=== PATIENT | female | born 1975 | race Caucasian/White ===

== ENCOUNTER 2016-09-26 08:09 | Inpatient (IN) ==
--- NOTE | 2016-09-26 08:26 | Emergency Department Note ---
Disposition Clinical Impression: COPD with acute exacerbation Pneumonia Qualifiers: Pneumonia type: due to unspecified organism Laterality: left Lung location: lower lobe of lung Qualified Code(s): J18.1 - Lobar pneumonia, unspecified organism Disposition: Admitted As Inpatient Condition: Fair Time of Disposition: 10:25 General Adult HPI - General Chief complaint: ED Chest Pain Stated complaint: chest pain Time Seen by Provider: 09/26/16 08:10 Source: patient Mode of arrival: EMS Limitations: no limitations Nursing Notes Reviewed: Yes Vital Signs Reviewed: Yes - History of Present Illness HPI Narrative: Patient is a 40-year-old female arriving by [facility] with past medical history of COPD presenting with complaint of chest pain shortness of breath this started suddenly when she woke up this morning. She describes the chest pain is stabbing like chest pain in the left chest and radiates into her arm into the left side of her back and worsens with deep breath, nothing makes it better. She denies any fevers, chills, nausea, vomiting, diaphoresis, abdominal pain, lower extremity swelling or calf pain. She has no history of CAD, blood clots, recent trauma or surgeries and is on no controls. Patient received a DuoNeb treatment by [facility] states she feels this improved her symptoms. The patient was also seen in the emergency department one week ago and treated for upper respiratory infection she does not recall the antibiotic, however did not make her better. - Related Data Home Medications Medication Instructions Recorded Confirmed Albuterol Sulfate [Albuterol 2 puff IH Q4-6H PRN 09/26/16 09/26/16 Inhaler] Tiotropium [Spiriva] 18 mcg PO DAILY 09/26/16 09/26/16 Allergies Allergy/AdvReac Type Severity Reaction Status Date / Time No Known Allergies Allergy Verified 09/26/16 10:34 All systems ED: reviewed and negative except as stated. Constitutional: Denies: fever, chills Cardiovascular: Reports: chest pain. Denies: palpitations, dyspnea on exertion Respiratory: Reports: cough, dyspnea, wheezes, sputum production. Denies: hemoptysis, stridor Gastrointestinal: Denies: abdominal pain, nausea, vomiting Genitourinary: Denies: urgency, dysuria Musculoskeletal: Denies: back pain, neck pain Integumentary: Denies: rash Neurological: Denies: headache, weakness Past Medical History - Past Medical History Medical history: Reports: COPD - Social History Smoking Status: Current every day smoker Smokeless Tobacco Status: No Alcohol use: Reports: none Drug use: Reports: none Physical Exam Patient does appear to be in mild discomfort she is to Her vital signs are otherwise normal. The patient is able to speak in full sentences. She is satting at 97% on room air. - General Limitations: no limitations General appearance: alert, in no apparent distress - Head Head exam: atraumatic, normocephalic, normal inspection - Eye Eye exam: Present: normal appearance, PERRL, EOMI - ENT ENT exam: normal exam, normal oropharynx, mucous membranes moist - Neck Neck exam: Present: normal inspection, full ROM, trachea midline - Chest Chest inspection: Present: normal inspection, symmetric chest wall rise - Expanded Respiratory Exam Location: wheezes: Left, Right, Upper, Lower, rales: Left, Upper, Lower, Right, rhonchi: Left, Upper, Lower - Cardiovascular Cardiovascular exam: Present: regular rate, normal rhythm, normal heart sounds - Abdominal Exam Abdominal exam: Present: soft, Non-Tender, normal bowel sounds - Extremities Exam Extremities exam: Present: normal inspection, full ROM, normal capillary refill. Absent: tenderness, pedal edema, calf tenderness - Expanded Lower Extremity Exam Neurovascular/Tendon exam: Present: normal capillary refill. Absent: pulse deficit - Back Exam Back exam: Present: normal inspection, full ROM. Absent: CVA tenderness (R), CVA tenderness (L) - Neurological Exam Neurological exam: Present: alert, oriented X3 - Psychiatric Psychiatric exam: Present: normal affect, anxious - Skin Skin exam: Present: warm, dry, intact, normal color Course Course Narrative: Patient is a 4-year-old female with history of COPD presenting with left-sided chest pain and shortness of breath upon awakening this morning. She seen here one week ago and treated for URI infection she states she received an antibiotic however when I review her past medical records she received steroids and expectorants. Order chest x-ray and labs also check some cardiac labs on her as well. - Reevaluation(s) Reevaluation #1: Patient states she is not feeling much better after her DuoNeb's. She requested something for her left-sided chest pain. Discussed with the patient I will treat her pain also started on an antibiotic. Discussed with her that her chest x-ray showed a possible pneumonia in her left lower lobe. Time: 09:52 Reevaluation #2: On reevaluation the patient and discussion for admission and also the patient has borderline tachycardia and she is satting at 91% on room air so put her on 2 L of oxygen. I also ordered blood cultures and lactic acid prior to antibiotic administration. I ordered her IV levofloxacin. Time: 10:14 Reevaluation #3: I discussed the patient's case with Dr. Prado he agrees to accept the patient. Time: 10:29 Vital Signs Temperature 98.3 F 09/26/16 08:11 Pulse Rate 90 09/26/16 08:11 Respiratory Rate 30 09/26/16 08:11 Blood Pressure 112/76 09/26/16 08:11 O2 Sat by Pulse Oximetry 96 09/26/16 08:11 Temperature 98.0 F 09/26/16 15:10 Pulse Rate 89 09/26/16 15:10 Respiratory Rate 18 09/26/16 15:10 Blood Pressure 107/71 09/26/16 15:10 O2 Sat by Pulse Oximetry 95 09/26/16 15:10 Oxygen Delivery Oxygen Delivery Nasal Cannula Medical Decision Making - Medical Records Medical records reviewed: Yes I reviewed the patient's medical records. - Lab Data Lab results reviewed: Yes I reviewed the patient's lab results. Result diagrams: 09/26/16 08:31 09/26/16 08:31 Lab Results 09/26/16 09/26/16 09/26/16 Range/Units 08:31 08:31 08:31 WBC 12.9 H (4.3-11.1) K/mcL RBC 4.38 (3.82-4.97) M/mcL Hgb 12.7 (11.5-15.4) g/dL Hct 38.4 (35.3-44.9) % MCV 87.7 (83.0-100.0) fL MCH 29.0 (28.0-33.3) pg MCHC 33.1 (31.6-35.5) g/dL RDW 12.7 (11.5-14.5) % Plt Count 172 (140-400) K/mcL MPV 10.2 (9.4-12.4) fL Immature Gran % 0.7 (0-4) % Seg Neutrophils % 78.4 % Lymphocytes % 11.4 % Monocytes % 8.7 % Eosinophils % 0.6 % Basophils % 0.2 % Neutrophils # 10.1 H (1.6-8.9) K/mcL Lymphocytes # 1.5 (0.6-4.6) K/mcL Monocytes # 1.1 (0.0-1.3) K/mcL Eosinophils # 0.1 (0.0-0.6) K/mcL Basophils # 0.0 (0.0-0.2) K/mcL Sodium 139 (136-145) mEq/L Potassium 3.6 (3.5-4.5) mEq/L Chloride 106 (98-109) mEq/L Carbon Dioxide 25 (19-29) mEq/L BUN 6 L (7-20) mg/dL Creatinine 0.80 (0.57-1.11) mg/dL Est GFR ( Amer) > 60 (> 60) Est GFR (Non-Af Amer) > 60 (> 60) BUN/Creatinine Ratio 8 (6-26) Glucose 117 H (70-99) mg/dL Calculated Osmolality 287 (280-300) Lactic Acid (0.5-2.2) mmol/L Calcium 8.9 (8.6-10.8) mg/dL Troponin I (0-0.03) ng/mL B-Natriuretic Peptide 48 (0-100) pg/mL 09/26/16 09/26/16 Range/Units 08:31 10:15 WBC (4.3-11.1) K/mcL RBC (3.82-4.97) M/mcL Hgb (11.5-15.4) g/dL Hct (35.3-44.9) % MCV (83.0-100.0) fL MCH (28.0-33.3) pg MCHC (31.6-35.5) g/dL RDW (11.5-14.5) % Plt Count (140-400) K/mcL MPV (9.4-12.4) fL Immature Gran % (0-4) % Seg Neutrophils % % Lymphocytes % % Monocytes % % Eosinophils % % Basophils % % Neutrophils # (1.6-8.9) K/mcL Lymphocytes # (0.6-4.6) K/mcL Monocytes # (0.0-1.3) K/mcL Eosinophils # (0.0-0.6) K/mcL Basophils # (0.0-0.2) K/mcL Sodium (136-145) mEq/L Potassium (3.5-4.5) mEq/L Chloride (98-109) mEq/L Carbon Dioxide (19-29) mEq/L BUN (7-20) mg/dL Creatinine (0.57-1.11) mg/dL Est GFR ( Amer) (> 60) Est GFR (Non-Af Amer) (> 60) BUN/Creatinine Ratio (6-26) Glucose (70-99) mg/dL Calculated Osmolality (280-300) Lactic Acid 1.0 (0.5-2.2) mmol/L Calcium (8.6-10.8) mg/dL Troponin I 0.01 (0-0.03) ng/mL B-Natriuretic Peptide (0-100) pg/mL - Radiology Data Radiology results reviewed: Yes I reviewed the patient's radiology results. Chest X-Ray 09/26/16 08:16 IMPRESSION: COPD with focal hazy airspace opacity at the left lung base suggestive of pneumonia. Recommend follow-up to resolution. D/ / 09/26/2016 09:01:12 Cem Collazo MD / Maricel Villasenor Interpreting Provider: Cem Collazo MD - EKG Data EKG #1 EKG attestation: Yes I reviewed and interpreted this EKG. EKG results narrative: This EKG was interpreted at 8:10. There is sinus rhythm at a rate of 93. Normal axis. IA is 117, QRS is 85, QT is 321 these are within normal limits. Good R-wave progression. No signs of hypertrophy. No ST elevations or depressions or Q waves. No old EKG for comparison.
[2016-09-26] MEDS ORDERED: Ipratropium/Albuterol Neb 3 ML IH SCH (08:30)
[2016-09-26] MEDS ORDERED: methylPREDNISolone 125 MG/2 ML VIAL IVP ONE (08:35)
[2016-09-26 08:39] LABS: Basophils % 0.2 %; Eosinophils # 0.1 K/mcL (0.0-0.6); Eosinophils % 0.6 %; Hematocrit 38.4 % (35.3-44.9); Hemoglobin 12.7 g/dL (11.5-15.4); Immature Granulocytes % 0.7 % (0-4); Lymphocytes # 1.5 K/mcL (0.6-4.6); Lymphocytes % 11.4 %; Mean Corpuscular HGB Conc 33.1 g/dL (31.6-35.5); Mean Corpuscular Volume 87.7 fL (83.0-100.0); Mean Platelet Volume 10.2 fL (9.4-12.4); Monocytes # 1.1 K/mcL (0.0-1.3); Monocytes % 8.7 %; Neutrophils # 10.1 K/mcL (1.6-8.9); Platelet Count 172 K/mcL (140-400); Red Blood Count 4.38 M/mcL (3.82-4.97); Red Cell Distribution Width 12.7 % (11.5-14.5); Segmented Neutrophils % 78.4 %
[2016-09-26 08:53] LABS: BUN/Creatinine Ratio 8 (6-26); Blood Urea Nitrogen 6 mg/dL (7-20); Calcium 8.9 mg/dL (8.6-10.8); Carbon Dioxide 25 mEq/L (19-29); Chloride 106 mEq/L (98-109); Glucose 117 mg/dL (70-99); Osmolality,Calculated 287 (280-300); Potassium 3.6 mEq/L (3.5-4.5); Sodium 139 mEq/L (136-145); eGFR For African Americans > 60 (> 60); eGFR For Non-African Americans > 60 (> 60)
--- NOTE | 2016-09-26 09:19 | Emergency Department Note ---
START Narrative - START START: I examined this patient and my medical decision-making was reviewed with the Resident Physician. I agree with the documented findings, disposition and treatment plan as described except to the extent set forth below. Patient to ED with left sided chest pain and shortness of breath. Pain woke her up from sleep. Recently seen here and diagnosed with a URI. States she has been taking her meds. She does have COPD. On exam she is in no distress with wheezes and crackles. Left greater than right. Plan. The patient has a left-sided infiltrate. We will treat for pneumonia. Patient now requiring O2. Lactate and blood cultures ordered. Patient is admitted.
[2016-09-26] MEDS ORDERED: levoFLOXacin 750 MG TABLET PO ONE (09:40)
[2016-09-26] MEDS ORDERED: Levofloxacin 750 MG/150 ML 750 MG/150 ML BAG IVPB ONE (10:02)
[2016-09-26] MEDS ORDERED: *HR* HYDROcodone/Acet 5/325 mg TABLET PO PRN (11:01)
[2016-09-26] MEDS ORDERED: *HR* Morphine 2 MG/ML SYRINGE IVP PRN (11:01)
[2016-09-26] MEDS ORDERED: Naloxone 0.4 MG/ML INJ IVP PRN (11:01)
[2016-09-26] MEDS ORDERED: Acetaminophen 325 MG TABLET PO PRN (11:01)
[2016-09-26] MEDS ORDERED: Ondansetron 4 MG/2 ML VIAL IVP PRN (11:01)
[2016-09-26] MEDS ORDERED: Ipratropium/Albuterol Neb 3 ML IH PRN (11:11)
--- NOTE | 2016-09-26 11:25 | Internal Med History&Physical ---
<Juan Myles - Last Filed: 09/26/16 13:10> Date of Encounter: 09/26/16 Time of Encounter: 10:15 Assessment and Plan (1) Pneumonia Current visit: Yes Status: Acute Patient presents with acute symptoms of pneumonia. Patient reports she was seen 1 week ago and diagnosed with an upper respiratory infection and discharged with steroids and antibiotics by mouth. She states she took medications as directed but this did not help. She has now developed a cough without sputum production. Upon admission to the ED patient presents with a WBC of 12.9, HR of 110 and RR of 30-35. 1-View CXR today shows COPD with focal hazy airspace opacity at the left lung base suggestive of pneumonia. Patient was given IV Levaquin in the ED and we will continue IV Levaquin 750 mg daily. Supplemental O2 and SPO2 monitoring. DuoNebs every 6 scheduled and every 2 when necessary. Patient was given 125 mg methylprednisolone in the ED. We will continue steroid therapy with 40 mg by mouth prednisone daily beginning tomorrow. IV fluids. Will continue patient's Spiriva and albuterol rescue inhaler. Blood culture ordered. Legionella and strep pneumoniae urine antigens ordered as well as RSV panel. Patient to be monitored closely for signs of increasing infection, respiratory, and/or cardiac distress. Qualifiers: Pneumonia type: due to unspecified organism Laterality: left Lung location: lower lobe of lung Qualified Code(s): J18.1 - Lobar pneumonia, unspecified organism (2) Chest pain Current visit: Yes Status: Acute Patient presents with acute chest pain centralized in left chest and radiating to her back that she states becomes worse with inspiration. Current chest pain most likely due to pneumonia versus COPD exacerbation. Patient has history of COPD and is a current smoker smoking 1.5 packs per day. One view CXR today shows COPD with focal hazy airspace opacity at the left lung base suggestive of pneumonia. Patient denies any previous cardiac history. Patient placed on continuous cardiac telemetry. Patient's initial troponin was 0.01 and we will trend troponins 2. IV fluids. Will consider echocardiogram based on troponin results and/or continued chest pain. Qualifiers: Chest pain type: chest pain on breathing Qualified Code(s): R07.1 - Chest pain on breathing; R07.81 - Pleurodynia (3) SIRS (systemic inflammatory response syndrome) Current visit: Yes Status: Acute Patient presents during admission today meeting SIRS criteria based on WBC of 12.9, heart rate of 110, and respiratory rate of 30-35. 1-View CXR today shows COPD with focal hazy airspace opacity at the left lung base suggestive of pneumonia. Blood cultures were ordered. Legionella and strep pneumoniae urine antigens were ordered. RSV panel ordered. Follow-up lactic acid ordered. Due to tachypnea steroids, breathing treatments, and supplemental O2 administered. IV fluids. Due to tachycardia patient placed on continuous cardiac telemetry. Troponin trending due to report of chest pain. Monitor patient for increasing signs of infection and/or sepsis, cardiac, and respiratory distress. (4) Failure of outpatient treatment Current visit: Yes Status: Acute Patient presents with failure of outpatient treatment for diagnosed URI approximately one week ago. Patient reports she has been nauseous and vomiting for several weeks and sought treatment last week and was diagnosed with URI. She was sent home on by mouth steroids and antibiotics which she states she took as directed but did not help. Patient to be admitted with IV antibiotics, breathing treatments, steroids. (5) COPD with acute exacerbation Current visit: Yes Status: Acute Patient presents with pneumonia versus acute exacerbation of COPD. Patient reports she is a current smoker smoking 1.5 packs per day. Patient is currently tachypneic and denies use home oxygen or previous shortness of breath to this degree. 125 mg IVP methylprednisolone administered in the ED. We will administer 40 mg prednisone daily by mouth. Supplemental O2 with titration if SPO2 less than 92% and continuous SPO2 monitoring. DuoNeb's ordered every 6 scheduled and every 2 when necessary. (6) Asthma Current visit: Yes Status: Chronic Patient presents with history of chronic asthma. Patient currently presents with shortness of breath and tachypnea most likely related to her diagnosis of pneumonia. Supplemental O2 with SPO2 monitoring. DuoNeb's every 6 scheduled and every 2 when necessary. We will continue patient's Spiriva and albuterol rescue inhaler. Prednisone 40 mg daily ordered. Will monitor patient's respiratory status. Qualifiers: Asthma severity: moderate persistent Asthma complication type: with acute exacerbation Qualified Code(s): J45.41 - Moderate persistent asthma with ( acute) exacerbation (7) DVT prophylaxis Current visit: Yes Status: Acute Patient to be placed on DVT prophylaxis due to current admission protocol and current symptoms of CP. Heparin 5,000 units SQ Q8 ordered. Internal Medicine - H&P: HPI Chief complaint: Chest pain/Shortness of breath Admitted From: Emergency Dept Plans for Post Hospital Care: Home History of present illness: Ms. Weeks is a 40 year old female who presents from the ED with chief complaint of left-sided chest pain that she describes as sharp and stabbing and radiating to her back between her shoulder blades. She states that the pain is constant and began at approximately 6 a.m. this morning. She also reports nausea and vomiting over the past few weeks and that she has not felt well. Patient was seen previously one week ago and diagnosed with URI and sent home with steroids and antibiotics. She reports she has been taking the medication but feels worse. Patient denies any generalized weakness, fever, chills, abdominal pain, diarrhea, changes in vision, dizziness, lightheadedness, pre- syncope, or syncope. She does report shortness of breath and chronic constipation. 1-View CXR of the chest today shows COPD with focal hazy airspace opacity at the left lung base suggestive of pneumonia. 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 Patient is a current smoker reporting that she smokes 1.5 PPD. No known allergies. Ms. Weeks currently meets SIRS criteria based on her HR of 110, RR of 30-35, and WBC of 12.9. Patient will be treated for pneumonia with underlying COPD exacerbation and chest pain rule-out with IV levaquin administered in the ED. Will continue IV levaquin 750 mg daily as well as DuoNebs Q6 scheduled and Q2 PRN, supplemental O2 with SpO2 monitoring, tropnonin trending x2, continuous cardiac telemetry, 40 mg PO prednisone daily, IVP Zofran for N/V, and IVP Protonix 40 mg daily. Ms. Weeks is at high risk for respiratory distress based on current symptoms, failed outpatient therapy, risk factors, and current SIRS criteria and will be placed as observation status. Patient to be monitored closely for signs of increasing cardiac and/or respiratory distress. Time spent with patient and family >40 minutes. Past Med Surg Social Fam HX - Past Medical History Source: patient Medical history: asthma, COPD Psychiatric history: no psych history - Past Surgical History Surgical History: other (Cleft palate repair) - Social History Smoking Status: Current every day smoker Packs per day: 1.5 PPD Smokeless Tobacco Status: No Alcohol use: none, occasionally Drug use: none Current living situation: Home, With Family Activity Level: Independent ambulation Recent Out of Country Travel Within the Last 8 Weeks: No Exposure or Possible Exposure to Illness During Travel: No - Family History Father Race: Family Member Ethnicity: Non- Living Status: Age at : 57 Cause of : [place] Hx Family Cardiac Disorders: Yes ([place]) Hx Family Respiratory Disorders: Yes (COPD) Mother Race: Family Member Ethnicity: Non- Living Status: Still Living Hx Family Cardiac Disorders: Yes (HD w/stent placement) Hx Family Respiratory Disorders: Yes (COPD) Hx Family Endocrine Disorder: Yes (DM) Sister Race: Family Member Ethnicity: Non- Living Status: Still Living Hx Family Medical Disorders: No Internal Medicine - H&P: Meds Albuterol Sulfate [Albuterol Inhaler] 2 puff IH Q4-6H PRN 09/26/16 [History] Tiotropium [Spiriva] 18 mcg PO DAILY 09/26/16 [History] 3 Allergy/AdvReac Type Severity Reaction Status Date / Time No Known Allergies Allergy Verified 09/26/16 10:34 All Systems PM: A 10-system review of systems was performed and is negative for pertinent findings except as documented above in the HPI. - Constitutional Constitutional: no chills, no fever(s), no night sweats - EENT Eyes: no change in vision, no discharge, no pain, no photophobia Ears: no ear discharge, no ear pain, no tinnitus Nose, mouth and throat: no dysphagia, no nasal discharge, no neck pain, no sore throat - Breasts Breasts: as per HPI - Cardiovascular Cardiovascular ROS IM: as per HPI, chest pain, dyspnea, dyspnea on exertion - Respiratory Respiratory: as per HPI, cough, dyspnea, dyspnea on exertion, pain with cough - Gastrointestinal Gastrointestinal: as per HPI, constipation, no abdominal pain, no diarrhea, no hematemesis, no hematochezia, no melena, no nausea, no vomiting - Genitourinary Genitourinary: no change in urinary stream, no dysuria, no flank pain, no hematuria Menstruation: as per HPI - Musculoskeletal Musculoskeletal ROS IM: no numbness, no tingling - Integumentary Integumentary IM: no rash, no unusual bruising - Neurological Neurological ROS: no confusion, no convulsions, no focal weakness, no numbness, no tingling, no tremor(s) - Psychiatric Psychiatric: as per HPI - Endocrine Endocrine IM: as per HPI - Hematologic/Lymphatic Hematologic/Lymphatic: no easy bruising - Allergic/Immunologic Allergic/Immunologic: as per HPI - Constitutional Vitals: Temp Pulse Resp BP Pulse Ox 98.3 F 110 35 135/90 96 09/26/16 08:11 09/26/16 10:23 09/26/16 10:23 09/26/16 10:23 09/26/16 10:23 General appearance: Present: cooperative, mild distress, A&O X 3, pleasant, underweight, answers questions appropriately - Head Head exam: Present: atraumatic, normocephalic - Eye Eye exam: Present: PERRL, conjuntiva pink, sclera anicteric Pupils: Present: PERRL - ENT ENT exam: Present: normal exam, normal external ear exam - Neck Neck exam general surgery: Present: normal inspection, supple, trachea midline. Absent: lymphadenopathy - Respiratory Respiratory exam: Present: decreased breath sounds, tachypnea. Absent: accessory muscle use, rales, rhonchi, wheezes - Cardiovascular Cardiovascular exam: Present: RRR, +S1, +S2. Absent: diastolic murmur, gallop, rubs, systolic murmur - GI/Abdominal GI/Abdominal exam: Present: normal bowel sounds, soft, no peritoneal signs. Absent: distended, tenderness - Rectal Rectal exam: Present: deferred - Additional comments: exam deferred. - Extremities Exam Extremities exam: Present: warm, radial pulses palpable and symmetrical. Absent : calf tenderness, cyanotic, pedal edema - Back Exam Back exam: Present: normal inspection - Neurological Exam Neurological exam: Present: CN II-XII intact, oriented X3, no focal deficits. Absent: pronater drift, facial droop, speech deficit - Psychiatric Psychiatric exam: Present: normal affect, normal mood - Skin Skin exam: Present: dry, intact Internal Med - H&P Results - Labs CBC & Chem 7: 09/26/16 08:31 09/26/16 08:31 - EKG Data EKG shows normal: sinus rhythm - EKG Data Prior EKG available for review: no EKG comments: 09/26/16 12:13 EKG dated 09/26/16 shows sinus rhythm with short NE interval. Borderline ECG. - Diagnostic Studies Chest x-ray Additional comments: Impressions Chest X-Ray 09/26/16 08:16 IMPRESSION: COPD with focal hazy airspace opacity at the left lung base suggestive of pneumonia. Recommend follow-up to resolution. D/ / 09/26/2016 09:01:12 Cem Collazo MD / Maricel Villasenor Interpreting Provider: Cem Collazo MD <Darnell Prado - Last Filed: 09/26/16 13:19> Date of Encounter: 09/26/16 Internal Medicine - H&P: HPI History of present illness: Ms. Weeks is a 40 year old female All Systems PM: A 10-system review of systems was performed and is negative for pertinent findings except as documented above in the HPI. - Constitutional Vitals: Temp Pulse Resp BP Pulse Ox 97.7 F 92 16 115/76 96 09/26/16 12:36 09/26/16 12:36 09/26/16 12:36 09/26/16 12:36 09/26/16 12:36 Internal Med - H&P Results - Labs CBC & Chem 7: 09/26/16 08:31 09/26/16 08:31 - Attending Attestation I saw and examined pt independently. I have discussed with [employer] Mr. Myles regarding the management plan. Agree with documentation. Pt present with CP/SOB. CXR show LLL pneumonia. Pt has Hx of COPD. SOB improved after nebulizer and solumendral in ER. Will treat pt as CAP, COPD exacerbation. CP is probably due to pneumonia, EKG is unremarkable. However, will track 3 sets of troponin and keep cont cardiac monitoring to r/o ACS.
[2016-09-26] MEDS: Nicotine 21 MG PATCH.TD24 TD SCH (14:49)
[2016-09-26] MEDS: Pantoprazole 40 MG VIAL IVP SCH (14:49)
[2016-09-26] MEDS: 0.9 % Sodium Chloride 1,000 ML IVC SCH (14:49)
[2016-09-26] MEDS: *HR* Heparin 5,000 UNIT/ML VIAL SQ SCH ×2 (14:50→21:32)
[2016-09-26] MEDS: Ipratropium/Albuterol Neb 3 ML IH SCH ×2 (15:54→21:30)
--- NOTE | 2016-09-26 18:19 | Electrocardiograph Report ---
[address] [address] Test Date: 2016-09-26 Pat Name: Isidra Weeks Department: 102 Room: 3B44 Gender: F Business Analysis Specialist: Am : 1975 Requested By: Triston Yeh Order Number: [id number] Reading MD: Yakov Ayers MD Measurements Intervals [place] Rate: 93 P: 70 OK: 117 QRS: 19 QRSD: 85 T: 56 QT: 321 QTc: 372 Interpretive Statements SINUS RHYTHM WITH SHORT OK INTERVAL BASELINE ARTIFACT Electronically Signed On 09-26-2016 18:18:01 EDT by Yakov Ayers MD
[2016-09-27] MEDS: Benzonatate 100 MG CAPSULE PO PRN (02:22)
[2016-09-27] MEDS: Ipratropium/Albuterol Neb 3 ML IH SCH ×4 (04:29→22:59)
[2016-09-27] MEDS: 0.9 % Sodium Chloride 1,000 ML IVC SCH ×3 (04:43→21:08)
[2016-09-27 05:12] LABS: Basophils % 0.1 %; Hematocrit 35.1 % (35.3-44.9); Hemoglobin 11.6 g/dL (11.5-15.4); Immature Granulocytes % 0.6 % (0-4); Lymphocytes % 8.8 %; Mean Corpuscular Hemoglobin 29.2 pg (28.0-33.3); Mean Corpuscular Volume 88.4 fL (83.0-100.0); Mean Platelet Volume 10.5 fL (9.4-12.4); Monocytes # 0.6 K/mcL (0.0-1.3); Neutrophils # 9.6 K/mcL (1.6-8.9); Platelet Count 174 K/mcL (140-400); Red Blood Count 3.97 M/mcL (3.82-4.97); Red Cell Distribution Width 12.8 % (11.5-14.5); Segmented Neutrophils % 85.5 %
[2016-09-27] MEDS: *HR* Heparin 5,000 UNIT/ML VIAL SQ SCH ×3 (05:20→21:06)
[2016-09-27 05:38] LABS: BUN/Creatinine Ratio 9 (6-26); Blood Urea Nitrogen 7 mg/dL (7-20); Carbon Dioxide 20 mEq/L (19-29); Chloride 111 mEq/L (98-109); Cholesterol 134 mg/dL (< 200); Glucose 139 mg/dL (70-99); HDL Cholesterol 45 mg/dL (40-59); LDL Cholesterol,Calculated 77 mg/dL (0-99); Magnesium 1.7 mg/dL (1.6-2.6); Osmolality,Calculated 286 (280-300); Potassium 4.1 mEq/L (3.5-4.5); Sodium 138 mEq/L (136-145); Triglycerides 59 mg/dL (< 150); eGFR For African Americans > 60 (> 60); eGFR For Non-African Americans > 60 (> 60)
[2016-09-27 05:53] LABS: Hemoglobin A1C 4.9 %
[2016-09-27] MEDS: Levofloxacin 750 MG/150 ML 750 MG/150 ML BAG IVPB SCH (08:41)
[2016-09-27] MEDS: predniSONE 20 MG TABLET PO SCH (08:41)
[2016-09-27] MEDS: Pantoprazole 40 MG VIAL IVP SCH (08:41)
[2016-09-27] MEDS: Tiotropium 18 MCG inhalation IH SCH (10:33)
[2016-09-27] MEDS: Nicotine 21 MG PATCH.TD24 TD SCH (12:48)
--- NOTE | 2016-09-27 13:51 | Internal Med Progress Note ---
Date of Encounter: 09/27/16 Time of Encounter: 13:50 - Assessment and plan (1) COPD with acute exacerbation Status: Acute Assessment and plan: Improving; continue bronchodilators, IV antibiotics, oral steroids and supplemental O2 via NC; wean down FiO2 as tolerated; supportive care; (2) Pneumonia Status: Acute Assessment and plan: Patient presents with cough and dyspnea, noted to have leukocytosis, tachypnea and tachycardia. Chest x-ray shows left basal infiltrate. Continue IV hydration and IV Levaquin. Supportive care and supplemental oxygen. Qualifiers: Pneumonia type: due to unspecified organism Laterality: left Lung location: lower lobe of lung Qualified Code(s): J18.1 - Lobar pneumonia, unspecified organism (3) Chest pain Status: Acute Assessment and plan: Likely pleuritic chest pain related to pneumonia and COPD exacerbation. Qualifiers: Chest pain type: chest pain on breathing Qualified Code(s): R07.1 - Chest pain on breathing; R07.81 - Pleurodynia (4) Sepsis Status: Acute Assessment and plan: Sepsis secondary to pneumonia. Currently improving. Qualifiers: Sepsis type: sepsis due to unspecified organism Qualified Code(s): A41.9 - Sepsis, unspecified organism (5) Tobacco abuse Status: Chronic Assessment and plan: Patient is not motivated to quit smoking at this time. Continue nicotine transdermal patch. - Subjective Interval history: Feels better but still has some shortness of breath and hacking cough; no fever , chest pain; - Constitutional Vitals: Temp Pulse Resp BP Pulse Ox 97.9 F 94 16 120/78 94 09/27/16 11:43 09/27/16 11:43 09/27/16 11:43 09/27/16 11:43 09/27/16 11:43 General appearance: Present: A&O X 3, underweight, answers questions appropriately - Respiratory Respiratory exam: Present: CTAB (coarse breath sounds B/L). Absent: accessory muscle use, rales, rhonchi, wheezes - Cardiovascular Cardiovascular exam: Present: RRR, +S1, +S2, tachycardia. Absent: diastolic murmur, gallop, rubs, systolic murmur - GI/Abdominal GI/Abdominal exam: Present: normal bowel sounds, soft, no peritoneal signs. Absent: distended, tenderness - Extremities Exam Extremities exam: Present: full ROM, warm, radial pulses palpable and symmetrical. Absent: calf tenderness, cyanotic, pedal edema Internal Medicine: Result - Labs CBC & Chem 7: 09/27/16 04:50 09/27/16 04:50 Labs: Short CBC 09/27/16 Range/Units 04:50 WBC 11.2 H (4.3-11.1) K/mcL Hgb 11.6 (11.5-15.4) g/dL Hct 35.1 L (35.3-44.9) % Plt Count 174 (140-400) K/mcL Neutrophils # 9.6 H (1.6-8.9) K/mcL BMP 09/27/16 04:50 Sodium 138 Potassium 4.1 Chloride 111 H Carbon Dioxide 20 BUN 7 Creatinine 0.74 Glucose 139 H Calcium 9.0 Cardiac Enzymes 09/26/16 09/26/16 Range/Units 16:24 22:09 Troponin I 0.00 0.01 (0-0.03) ng/mL Consult Discharge Plan - Plan Instructions: Benzonatate (By mouth), Prednisone (By mouth), Omeprazole (By mouth), Levofloxacin (By mouth), Chronic Obstructive Pulmonary Disease (DC), Community-acquired Pneumonia (DC) Referrals: Moiz Mack MD [Primary Care Provider] - 10/06/16 1:00 pm Prescriptions: Benzonatate [Tessalon] 200 mg PO TID PRN #30 PRN Reason: Cough Levofloxacin [Levaquin] 750 mg PO DAILY 4 Days Omeprazole [PriLOSEC] 20 mg PO DAILY@0630 #10 predniSONE [PredniSONE] 40 mg PO DAILY #14 tab
[2016-09-28] MEDS: Ipratropium/Albuterol Neb 3 ML IH SCH ×2 (03:36→10:29)
[2016-09-28] MEDS: *HR* Heparin 5,000 UNIT/ML VIAL SQ SCH (06:01)
[2016-09-28] MEDS: 0.9 % Sodium Chloride 1,000 ML IVC SCH (09:40)
[2016-09-28] MEDS: predniSONE 20 MG TABLET PO SCH (09:40)
[2016-09-28] MEDS: Benzonatate 100 MG CAPSULE PO PRN (09:40)
[2016-09-28] MEDS: Levofloxacin 750 MG/150 ML 750 MG/150 ML BAG IVPB SCH (09:40)
[2016-09-28] MEDS: Tiotropium 18 MCG inhalation IH SCH (10:30)
[2016-09-28 10:50] VITALS: BP 116/73
--- NOTE | 2016-09-28 13:05 | Discharge Summary ---
Date of Encounter: 09/28/16 Time of Encounter: 13:02 - Discharge Diagnosis (1) Sepsis Priority: Primary Status: Acute Qualifiers: Sepsis type: sepsis due to unspecified organism Qualified Code(s): A41.9 - Sepsis, unspecified organism (2) Tobacco abuse Priority: Secondary Status: Chronic (3) COPD with acute exacerbation Priority: Primary Status: Acute (4) Pneumonia Priority: Primary Status: Acute Qualifiers: Pneumonia type: due to unspecified organism Laterality: left Lung location: lower lobe of lung Qualified Code(s): J18.1 - Lobar pneumonia, unspecified organism (5) Chest pain Priority: Primary Status: Acute Qualifiers: Chest pain type: chest pain on breathing Qualified Code(s): R07.1 - Chest pain on breathing; R07.81 - Pleurodynia - Discharge Medications Prescriptions: Benzonatate [Tessalon] 200 mg PO TID PRN #30 PRN Reason: Cough Levofloxacin [Levaquin] 750 mg PO DAILY 4 Days Omeprazole [PriLOSEC] 20 mg PO DAILY@0630 #10 predniSONE [PredniSONE] 40 mg PO DAILY #14 tab Home Medications: Albuterol Sulfate [Albuterol Inhaler] 2 puff IH Q4-6H PRN 09/26/16 [History] Tiotropium [Spiriva] 18 mcg PO DAILY 09/26/16 [History] Benzonatate [Tessalon] 200 mg PO TID PRN #30 09/28/16 [Rx] Levofloxacin [Levaquin] 750 mg PO DAILY 4 Days 09/28/16 [Rx] Omeprazole [PriLOSEC] 20 mg PO DAILY@0630 #10 09/28/16 [Rx] predniSONE [PredniSONE] 40 mg PO DAILY #14 tab 09/28/16 [Rx] Allergies/Adverse Reactions: 3 Allergy/AdvReac Type Severity Reaction Status Date / Time No Known Allergies Allergy Verified 09/26/16 10:34 Date of admission: 09/26/16 12:23 Primary care physician: Moiz Mack Discharging clinician: Earlene Tan Anticipated date of discharge: 09/28/16 - Patient Status Disposition: Home, Self-Care Condition: Good Functional capacity at discharge: independent ambulation Overall status at discharge: patient is progressing back to baseline - Discharge Instructions Instructions: Benzonatate (By mouth), Prednisone (By mouth), Omeprazole (By mouth), Levofloxacin (By mouth), Chronic Obstructive Pulmonary Disease (DC), Community-acquired Pneumonia (DC) Follow Up With: Moiz Mack MD [Primary Care Provider] - 10/06/16 1:00 pm - Diet and Activity Activity: resume usual activities as tolerated Diet: advance to your usual diet, regular diet Hospital course: Ms. Weeks is a 40 year old female with history of asthma and tobacco abuse was admitted with worsening cough and shortness of breath. She was noted to have sepsis and chest x-ray showed left basilar infiltrate. She was started on IV hydration and antibiotics. She also had acute exacerbation of underlying asthma/COPD and was started on IV steroids, scheduled bronchodilators and supplemental oxygen. Blood cultures remain negative. Patient gradually improved on this regimen and she is currently no longer requiring supplemental oxygen and her respiratory status improved. She is medically stable for discharge with oral antibiotics and steroids. Time spent discussing smoking cessation with patient: 3 to 10 minutes - Time Spent with Patient Total time spent providing and/or coordinating discharge services: Greater than 30 minutes (40 min) - Constitutional Vitals: Temp Pulse Resp BP Pulse Ox 97.5 F L 104 16 116/73 94 09/28/16 10:48 09/28/16 10:48 09/28/16 10:48 09/28/16 10:48 09/28/16 10:48 General appearance: Present: A&O X 3, underweight, answers questions appropriately - Respiratory Respiratory exam: Present: CTAB. Absent: accessory muscle use, rales, rhonchi, wheezes - Cardiovascular Cardiovascular exam: Present: RRR, +S1, +S2. Absent: diastolic murmur, gallop, rubs, systolic murmur
== END 2016-09-28 14:15 | disposition home or self-care (01) | DRG 871 ==
LOC: 3BNU 08:09 → EMEROO 08:09 → 3BNU 12:23 → SUATTDRO 12:23
PROVIDERS: ADMIT Internal Medicine; ATTEND Internal Medicine